=== PATIENT | male | born 1960 | race Caucasian/White ===

== ENCOUNTER → 2016-09-16 | Outpatient (CLI) | payer MEDICARE ==
[2015-06-22 08:14] VITALS: BP 164/64
[~2016-09-16] MED LIST: AMITRIPTYLINE H25 M2 PO; CYMBALTA; DILAUDID4 M1 PO; FLEXERIL 1010 MG/TAB PO; GLUCOPHAGE1000 MG PO; KLONOPIN0.5 M1 PO; LEVEMIR100 U/M1; LYRICA PO; LYRICA20 MG/ML; VICTOZA6 MG/ML SQ
== END ==
LOC: RAD 15:07
DX: M54.5 Low back pain (principal); M79.651 Pain in right thigh; M51.36 Other intervertebral disc degeneration, lumbar region

== ENCOUNTER → 2016-11-04 | Outpatient (CLI) | payer MEDICARE ==
[2015-06-22 08:14] VITALS: BP 164/64
== END ==
LOC: LAB 13:58
DX: E11.9 Type 2 diabetes mellitus without complications (principal); I10 Essential (primary) hypertension; J44.9 Chronic obstructive pulmonary disease, unspecified; M54.16 Radiculopathy, lumbar region

== ENCOUNTER → 2017-02-24 | Outpatient (CLI) | payer MEDICARE ==
[2015-06-22 08:14] VITALS: BP 164/64
== END ==
LOC: LAB 14:09
DX: I10 Essential (primary) hypertension (principal); E11.40 Type 2 diabetes mellitus with diabetic neuropathy, unspecified; E11.8 Type 2 diabetes mellitus with unspecified complications

== ENCOUNTER → 2017-03-16 | Outpatient (CLI) | payer MEDICARE ==
[~2017-03-16] VITALS: Ht 188 cm; Wt 188.6 kg
[~2017-03-16] MED LIST changes: +ACTOS 15MG TAB15 MG PO; +COMBIVENT RESPI1 SPR IH; +LISINOPRIL40 MG PO; +NORTRIPTYLINE H10 M1
[2017-03-16 08:44] LABS: PROTHROMBIN TIME 9.9 SECONDS (9.0-12.0)
[2017-03-16 08:48] LABS: BUN/CREATININE RATIO 30.3 (6.0-26.0); CALCIUM 9.8 mg/dL (8.4-10.2); POTASSIUM 4.6 mmol/L (3.6-5.0); TOTAL BILIRUBIN 0.8 mg/dL (0.2-1.3); TOTAL PROTEIN 7.5 g/dL (6.3-8.2)
[2017-03-16 08:51] LABS: EOS # 0.3 (0.04-0.40); EOS % 3.1 % (0.0-4.0); HEMATOCRIT 42.6 % (42.0-52.0); HEMOGLOBIN 14.5 g/dL (13.5-18.0); LYMPH# 2.2 (1.50-4.00); MEAN CELL VOLUME 91 fl (78-100); MEAN CORPUSCULAR HEMOGLOBIN 31 pg (27-31); MEAN CORPUSCULAR HGB CONC 34 g/dL (33-37); MEAN PLATELET VOLUME 10.7 fl (7.4-10.4); MONO # 0.7 (0.20-0.80); NEU # 4.8 (1.40-6.50); PLATELET COUNT 198 K/mm3 (130-400); RED BLOOD COUNT 4.68 M/mm3 (4.20-5.60); RED CELL DISTRIBUTION WIDTH 13.1 % (11.5-14.5)
[2017-03-16 09:03] LABS: URINE APPEARANCE CLEAR; URINE BILIRUBIN NEGATIVE (NEGATIVE); URINE BLOOD NEGATIVE (NEGATIVE); URINE COLOR YELLOW; URINE GLUCOSE NEGATIVE (NEGATIVE); URINE KETONE NEGATIVE (NEGATIVE); URINE LEUKOCYTE ESTERASE NEGATIVE (NEGATIVE); URINE NITRATE NEGATIVE (NEGATIVE); URINE PROTEIN(semi-quant) NEGATIVE (NEGATIVE); URINE UROBILINOGEN NORMAL (NORMAL); URINE WBC 0-1 /hpf (0-3)
[2017-03-16 09:12] VITALS: BP 132/72
== END ==
LOC: AMSURD 08:16
DX: E11.9 Type 2 diabetes mellitus without complications (principal); I10 Essential (primary) hypertension; I11.0 Hypertensive heart disease with heart failure

== ENCOUNTER → 2017-03-21 | Outpatient (CLI) | payer MEDICARE ==
[2017-03-16 09:12] VITALS: BP 132/72
== END ==
LOC: RAD 13:00
DX: Z01.810 Encounter for preprocedural cardiovascular examination (principal); M54.16 Radiculopathy, lumbar region

== ENCOUNTER 2017-04-15 16:54 | Inpatient (IN) | payer MEDICARE ==
[~2017-04-15] VITALS: Ht 188 cm; Wt 191.0 kg
[~2017-04-15 16:54] MED LIST changes: -LEVEMIR100 U/M1; +LEVEMIR100 U/M1 SQ
[2017-04-15 18:14] VITALS: BP 163/84
[2017-04-15 18:26] VITALS: BP 163/84
[2017-04-16 06:28] VITALS: BP 176/87
[2017-04-16 07:49] LABS: ALBUMIN 3.2 g/dL (3.5-5.0); BUN/CREATININE RATIO 31.5 (6.0-26.0); CALCIUM 8.9 mg/dL (8.4-10.2); POTASSIUM 4.5 mmol/L (3.6-5.0); TOTAL BILIRUBIN 0.8 mg/dL (0.2-1.3); TOTAL PROTEIN 6.5 g/dL (6.3-8.2)
[2017-04-16 07:54] LABS: EOS # 0.4 (0.04-0.40); HEMATOCRIT 30.9 % (42.0-52.0); HEMOGLOBIN 10.1 g/dL (13.5-18.0); LYMPH# 1.3 (1.50-4.00); MEAN CELL VOLUME 93 fl (78-100); MEAN CORPUSCULAR HEMOGLOBIN 30 pg (27-31); MEAN CORPUSCULAR HGB CONC 33 g/dL (33-37); MEAN PLATELET VOLUME 10.9 fl (7.4-10.4); MONO # 0.8 (0.20-0.80); NEU # 4.2 (1.40-6.50); PLATELET COUNT 166 K/mm3 (130-400); RED BLOOD COUNT 3.32 M/mm3 (4.20-5.60); RED CELL DISTRIBUTION WIDTH 13.4 % (11.5-14.5); WHITE BLOOD COUNT 6.7 K/mm3 (4.8-10.8)
[2017-04-16 08:10] LABS: EOS % 5.2 % (0.0-4.0)
[2017-04-16 17:58] VITALS: BP 166/71
[2017-04-16 18:08] VITALS: BP 166/71
[2017-04-16 18:30] VITALS: BP 166/74
[2017-04-17 05:16] VITALS: BP 152/65
[2017-04-17 17:43] VITALS: BP 171/76
[2017-04-18 06:10] VITALS: BP 148/74
[2017-04-18 07:05] LABS: HEMATOCRIT 33.4 % (42.0-52.0); MEAN CELL VOLUME 93 fl (78-100); MEAN CORPUSCULAR HEMOGLOBIN 31 pg (27-31); MEAN CORPUSCULAR HGB CONC 33 g/dL (33-37); MEAN PLATELET VOLUME 10.3 fl (7.4-10.4); PLATELET COUNT 206 K/mm3 (130-400); RED BLOOD COUNT 3.61 M/mm3 (4.20-5.60); RED CELL DISTRIBUTION WIDTH 13.5 % (11.5-14.5); WHITE BLOOD COUNT 6.9 K/mm3 (4.8-10.8)
[2017-04-18 07:57] LABS: BAND 1 % (0-10); LYMPHOCYTE 30 % (20-51); MONOCYTE 7 % (3-10); NEUTROPHILS 58 % (42-75); NUCLEATED RED BLOOD CELL 1 (0-6)
[2017-04-18 08:01] LABS: ERYTHROCYTE SEDIMENTATION RATE 78 mm/hr (0-20)
[2017-04-18 19:01] VITALS: BP 170/62
[2017-04-19 06:33] VITALS: BP 175/86
[2017-04-19 18:05] VITALS: BP 185/93
[2017-04-20 06:30] VITALS: BP 147/86
[2017-04-20 19:00] VITALS: BP 149/70
[2017-04-21 06:55] VITALS: BP 132/64
[2017-04-21 18:20] VITALS: BP 133/54
[2017-04-22 06:38] VITALS: BP 167/97
[2017-04-22 15:13] LABS: BASO # 0.1 (0.02-0.10); EOS # 0.4 (0.04-0.40); EOS % 4.5 % (0.0-4.0); HEMATOCRIT 39.9 % (42.0-52.0); LYMPH# 2.2 (1.50-4.00); MEAN CELL VOLUME 93 fl (78-100); MEAN CORPUSCULAR HEMOGLOBIN 30 pg (27-31); MEAN CORPUSCULAR HGB CONC 33 g/dL (33-37); MONO # 0.9 (0.20-0.80); NEU # 5.2 (1.40-6.50); PLATELET COUNT 308 K/mm3 (130-400); RED CELL DISTRIBUTION WIDTH 13.6 % (11.5-14.5); WHITE BLOOD COUNT 9.1 K/mm3 (4.8-10.8)
[2017-04-22 18:50] VITALS: BP 148/77
[2017-04-23 06:22] VITALS: BP 135/62
[2017-04-23 18:34] VITALS: BP 171/83
[2017-04-24 05:58] VITALS: BP 128/68
[2017-04-24 06:23] VITALS: BP 128/68
[2017-04-24 18:40] VITALS: BP 127/80
[2017-04-25 06:24] VITALS: BP 169/89
[2017-04-25 18:02] VITALS: BP 153/87
[2017-04-26 06:24] VITALS: BP 151/77
[2017-04-26 08:14] LABS: BASO # 0.1 (0.02-0.10); EOS # 0.2 (0.04-0.40); EOS % 1.4 % (0.0-4.0); HEMATOCRIT 41.9 % (42.0-52.0); HEMOGLOBIN 13.6 g/dL (13.5-18.0); LYMPH# 2.2 (1.50-4.00); MEAN CELL VOLUME 92 fl (78-100); MEAN CORPUSCULAR HEMOGLOBIN 30 pg (27-31); MEAN CORPUSCULAR HGB CONC 33 g/dL (33-37); MEAN PLATELET VOLUME 9.9 fl (7.4-10.4); MONO # 1.4 (0.20-0.80); NEU # 8.8 (1.40-6.50); PLATELET COUNT 339 K/mm3 (130-400); RED BLOOD COUNT 4.54 M/mm3 (4.20-5.60); RED CELL DISTRIBUTION WIDTH 13.3 % (11.5-14.5); WHITE BLOOD COUNT 12.7 K/mm3 (4.8-10.8)
[2017-04-26] MEDS ORDERED: ROBAXIN 75750 MG/TA1 PO (09:07)
[2017-04-26] MEDS ORDERED: NICOTINE21 MG/24 H TD (09:08)
[2017-04-26] MEDS ORDERED: LYRICA 150MG C150 MG PO (09:11)
[2017-04-26 09:16] LABS: ERYTHROCYTE SEDIMENTATION RATE 44 mm/hr (0-20)
== END 2017-04-26 13:10 | disposition home health service (06) | DRG 920 ==
LOC: MED/SURG 16:54
PROVIDERS: Family Medicine; ADMIT Physician Assistant
DX: M96.842 Postprocedural seroma of a musculoskeletal structure following a musculoskeletal system procedure (principal); Z68.43 Body mass index [BMI] 50.0-59.9, adult; R53.81 Other malaise; E66.01 Morbid (severe) obesity due to excess calories; J44.9 Chronic obstructive pulmonary disease, unspecified; I10 Essential (primary) hypertension; E11.40 Type 2 diabetes mellitus with diabetic neuropathy, unspecified; G47.00 Insomnia, unspecified; Z79.4 Long term (current) use of insulin; Z87.891 Personal history of nicotine dependence; Z79.84 Long term (current) use of oral hypoglycemic drugs
CPT/HCPCS: J1644; J1815

== ENCOUNTER 2017-05-17 14:53 | Emergency (ER) | payer MEDICARE ==
[~2017-05-17] VITALS: Ht 188 cm; Wt 187.3 kg
[~2017-05-17 14:53] MED LIST changes: +LYRICA 150MG C150 MG PO; +NICOTINE21 MG/24 H TD; +ROBAXIN 75750 MG/TA1 PO
[2017-05-17 15:39] LABS: EOS # 0.3 (0.04-0.40); EOS % 2.2 % (0.0-4.0); HEMATOCRIT 43.1 % (42.0-52.0); HEMOGLOBIN 13.6 g/dL (13.5-18.0); LYMPH# 1.9 (1.50-4.00); MEAN CELL VOLUME 90 fl (78-100); MEAN CORPUSCULAR HEMOGLOBIN 28 pg (27-31); MEAN CORPUSCULAR HGB CONC 32 g/dL (33-37); MEAN PLATELET VOLUME 10.4 fl (7.4-10.4); MONO # 0.8 (0.20-0.80); PLATELET COUNT 351 K/mm3 (130-400); RED CELL DISTRIBUTION WIDTH 13.2 % (11.5-14.5); WHITE BLOOD COUNT 13.7 K/mm3 (4.8-10.8)
[2017-05-17 15:48] LABS: NEU # 10.7 (1.40-6.50)
[2017-05-17 16:03] LABS: ALBUMIN 4.1 g/dL (3.5-5.0); BUN/CREATININE RATIO 26.2 (6.0-26.0); CALCIUM 9.7 mg/dL (8.4-10.2); POTASSIUM 4.9 mmol/L (3.6-5.0); TOTAL BILIRUBIN 0.6 mg/dL (0.2-1.3); TOTAL PROTEIN 8.1 g/dL (6.3-8.2)
[2017-05-17 19:03] VITALS: BP 151/85
== END 2017-05-17 18:45 | disposition short-term general hospital (02) ==
LOC: ED 14:53
PROVIDERS: Physician Assistant
DX: A41.9 Sepsis, unspecified organism (principal); T81.4XXA Infection following a procedure, initial encounter; L02.212 Cutaneous abscess of back [any part, except buttock and flank]; T81.31XA Disruption of external operation (surgical) wound, not elsewhere classified, initial encounter; E11.9 Type 2 diabetes mellitus without complications; Z79.4 Long term (current) use of insulin; I10 Essential (primary) hypertension; J44.9 Chronic obstructive pulmonary disease, unspecified; W18.30XA Fall on same level, unspecified, initial encounter; Y92.003 Bedroom of unspecified non-institutional (private) residence as the place of occurrence of the external cause; Z87.891 Personal history of nicotine dependence
CPT/HCPCS: J2270; J2543; J3370; J7030; J7050

== ENCOUNTER → 2017-05-30 | Outpatient (CLI) | payer MEDICARE ==
[2017-05-17 19:03] VITALS: BP 151/85
[2017-05-30 15:41] LABS: ALBUMIN 3.4 g/dL (3.5-5.0); CALCIUM 9.1 mg/dL (8.4-10.2); POTASSIUM 4.7 mmol/L (3.6-5.0); TOTAL BILIRUBIN 0.6 mg/dL (0.2-1.3); TOTAL PROTEIN 6.8 g/dL (6.3-8.2)
[2017-05-30 15:42] LABS: BASO # 0.1 (0.02-0.10); EOS # 0.5 (0.04-0.40); HEMATOCRIT 35.8 % (42.0-52.0); HEMOGLOBIN 11.3 g/dL (13.5-18.0); LYMPH# 1.8 (1.50-4.00); MEAN CELL VOLUME 90 fl (78-100); MEAN CORPUSCULAR HEMOGLOBIN 29 pg (27-31); MEAN CORPUSCULAR HGB CONC 32 g/dL (33-37); MEAN PLATELET VOLUME 11.5 fl (7.4-10.4); MONO # 0.8 (0.20-0.80); NEU # 5.8 (1.40-6.50); PLATELET COUNT 317 K/mm3 (130-400); RED BLOOD COUNT 3.97 M/mm3 (4.20-5.60); RED CELL DISTRIBUTION WIDTH 13.7 % (11.5-14.5)
[2017-05-30 15:47] LABS: EOS % 5.1 % (0.0-4.0)
== END ==
LOC: LAB 13:56
DX: T81.4XXD Infection following a procedure, subsequent encounter (principal); A41.9 Sepsis, unspecified organism

== ENCOUNTER → 2017-06-06 | Outpatient (CLI) | payer MEDICARE ==
[2017-05-17 19:03] VITALS: BP 151/85
[2017-06-06 12:51] LABS: EOS # 0.2 (0.04-0.40); EOS % 2.1 % (0.0-4.0); HEMATOCRIT 38.3 % (42.0-52.0); HEMOGLOBIN 11.8 g/dL (13.5-18.0); MEAN CELL VOLUME 91 fl (78-100); MEAN CORPUSCULAR HEMOGLOBIN 28 pg (27-31); MEAN CORPUSCULAR HGB CONC 31 g/dL (33-37); MEAN PLATELET VOLUME 11.3 fl (7.4-10.4); MONO # 0.7 (0.20-0.80); NEU # 4.6 (1.40-6.50); PLATELET COUNT 315 K/mm3 (130-400); RED BLOOD COUNT 4.22 M/mm3 (4.20-5.60); RED CELL DISTRIBUTION WIDTH 14.4 % (11.5-14.5); WHITE BLOOD COUNT 7.5 K/mm3 (4.8-10.8)
[2017-06-06 13:01] LABS: ALBUMIN 3.3 g/dL (3.5-5.0); CALCIUM 9.1 mg/dL (8.4-10.2); POTASSIUM 5.1 mmol/L (3.6-5.0); TOTAL BILIRUBIN 0.4 mg/dL (0.2-1.3); TOTAL PROTEIN 6.5 g/dL (6.3-8.2)
== END ==
LOC: LAB 11:20
PROVIDERS: Internal Medicine Infectious Disease
DX: A41.9 Sepsis, unspecified organism (principal)

== ENCOUNTER → 2017-06-13 | Outpatient (CLI) | payer MEDICARE ==
[2017-05-17 19:03] VITALS: BP 151/85
[2017-06-13 16:56] LABS: EOS # 0.2 (0.04-0.40); EOS % 2.6 % (0.0-4.0); HEMATOCRIT 40.2 % (42.0-52.0); HEMOGLOBIN 12.5 g/dL (13.5-18.0); LYMPH# 1.7 (1.50-4.00); MEAN CELL VOLUME 91 fl (78-100); MEAN CORPUSCULAR HEMOGLOBIN 28 pg (27-31); MEAN CORPUSCULAR HGB CONC 31 g/dL (33-37); MONO # 0.7 (0.20-0.80); NEU # 5.8 (1.40-6.50); PLATELET COUNT 284 K/mm3 (130-400); RED BLOOD COUNT 4.41 M/mm3 (4.20-5.60); WHITE BLOOD COUNT 8.6 K/mm3 (4.8-10.8)
[2017-06-13 17:05] LABS: ALBUMIN 3.5 g/dL (3.5-5.0); BUN/CREATININE RATIO 22.1 (6.0-26.0); CALCIUM 9.2 mg/dL (8.4-10.2); POTASSIUM 4.8 mmol/L (3.6-5.0); TOTAL BILIRUBIN 0.3 mg/dL (0.2-1.3); TOTAL PROTEIN 6.8 g/dL (6.3-8.2)
== END ==
LOC: LAB 16:23
PROVIDERS: Family Medicine
DX: A41.9 Sepsis, unspecified organism (principal)

== ENCOUNTER → 2017-06-20 | Outpatient (CLI) | payer MEDICARE ==
[2017-06-20 10:06] LABS: EOS # 0.2 (0.04-0.40); EOS % 3.1 % (0.0-4.0); HEMATOCRIT 42.2 % (42.0-52.0); HEMOGLOBIN 13.1 g/dL (13.5-18.0); LYMPH# 1.5 (1.50-4.00); MEAN CELL VOLUME 90 fl (78-100); MEAN CORPUSCULAR HEMOGLOBIN 28 pg (27-31); MEAN CORPUSCULAR HGB CONC 31 g/dL (33-37); MEAN PLATELET VOLUME 10.5 fl (7.4-10.4); MONO # 0.7 (0.20-0.80); NEU # 5.1 (1.40-6.50); PLATELET COUNT 248 K/mm3 (130-400); RED BLOOD COUNT 4.71 M/mm3 (4.20-5.60); RED CELL DISTRIBUTION WIDTH 15.1 % (11.5-14.5); WHITE BLOOD COUNT 7.6 K/mm3 (4.8-10.8)
[2017-06-20 10:13] LABS: ALBUMIN 3.6 g/dL (3.5-5.0); BUN/CREATININE RATIO 32.3 (6.0-26.0); CALCIUM 9.2 mg/dL (8.4-10.2); POTASSIUM 4.9 mmol/L (3.6-5.0); TOTAL BILIRUBIN 0.4 mg/dL (0.2-1.3); TOTAL PROTEIN 6.9 g/dL (6.3-8.2)
== END ==
LOC: LAB 09:52
DX: A41.9 Sepsis, unspecified organism (principal)

== ENCOUNTER → 2017-06-27 | Outpatient (CLI) | payer MEDICARE ==
[2017-06-27 10:06] LABS: EOS # 0.2 (0.04-0.40); EOS % 3.7 % (0.0-4.0); HEMATOCRIT 43.2 % (42.0-52.0); HEMOGLOBIN 13.4 g/dL (13.5-18.0); LYMPH# 1.7 (1.50-4.00); MEAN CELL VOLUME 90 fl (78-100); MEAN CORPUSCULAR HEMOGLOBIN 28 pg (27-31); MEAN CORPUSCULAR HGB CONC 31 g/dL (33-37); MONO # 0.7 (0.20-0.80); NEU # 3.8 (1.40-6.50); PLATELET COUNT 249 K/mm3 (130-400); RED BLOOD COUNT 4.82 M/mm3 (4.20-5.60); RED CELL DISTRIBUTION WIDTH 14.6 % (11.5-14.5); WHITE BLOOD COUNT 6.5 K/mm3 (4.8-10.8)
[2017-06-27 10:32] LABS: ALBUMIN 3.4 g/dL (3.5-5.0); BUN/CREATININE RATIO 38.1 (6.0-26.0); CALCIUM 9.3 mg/dL (8.4-10.2); POTASSIUM 4.8 mmol/L (3.6-5.0); TOTAL BILIRUBIN 0.2 mg/dL (0.2-1.3); TOTAL PROTEIN 6.6 g/dL (6.3-8.2)
== END ==
LOC: LAB 09:52
PROVIDERS: Family Medicine
DX: A41.9 Sepsis, unspecified organism (principal)

== ENCOUNTER → 2017-07-07 | Outpatient (CLI) | payer MEDICARE ==
[~2017-07-07] VITALS: Ht 188 cm; Wt 191.8 kg
--- NOTE | 2017-07-07 10:40 | NUR ---
PICC care and NS and Hep lock flush administered by Linda Rajput RN.
[2017-07-07 11:20] VITALS: BP 119/67
[2017-07-07 11:54] LABS: EOS # 0.2 (0.04-0.40); EOS % 1.9 % (0.0-4.0); HEMATOCRIT 45.1 % (42.0-52.0); MEAN CELL VOLUME 88 fl (78-100); MEAN CORPUSCULAR HEMOGLOBIN 27 pg (27-31); MEAN CORPUSCULAR HGB CONC 31 g/dL (33-37); MEAN PLATELET VOLUME 10.8 fl (7.4-10.4); MONO # 0.7 (0.20-0.80); NEU # 4.8 (1.40-6.50); PLATELET COUNT 278 K/mm3 (130-400); RED BLOOD COUNT 5.13 M/mm3 (4.20-5.60); RED CELL DISTRIBUTION WIDTH 14.8 % (11.5-14.5); WHITE BLOOD COUNT 7.7 K/mm3 (4.8-10.8)
[2017-07-07 11:56] LABS: BUN/CREATININE RATIO 26.7 (6.0-26.0); CALCIUM 9.6 mg/dL (8.4-10.2); POTASSIUM 4.6 mmol/L (3.6-5.0); TOTAL BILIRUBIN 0.4 mg/dL (0.2-1.3); TOTAL PROTEIN 7.9 g/dL (6.3-8.2)
[2017-07-08 08:20] LABS: C-REACTIVE PROTEIN XXX
== END ==
LOC: AMSURD 10:41 → LAB 10:41
PROVIDERS: Family Medicine
DX: T81.4XXA Infection following a procedure, initial encounter (principal); E11.9 Type 2 diabetes mellitus without complications; I10 Essential (primary) hypertension; E66.01 Morbid (severe) obesity due to excess calories
CPT/HCPCS: J1644

== ENCOUNTER → 2017-07-11 | Outpatient (CLI) | payer MEDICARE ==
[2017-07-07 11:20] VITALS: BP 119/67
[2017-07-11 09:39] LABS: EOS # 0.2 (0.04-0.40); EOS % 2.5 % (0.0-4.0); HEMATOCRIT 43.2 % (42.0-52.0); HEMOGLOBIN 13.6 g/dL (13.5-18.0); MEAN CELL VOLUME 89 fl (78-100); MEAN CORPUSCULAR HEMOGLOBIN 28 pg (27-31); MEAN CORPUSCULAR HGB CONC 32 g/dL (33-37); MEAN PLATELET VOLUME 10.9 fl (7.4-10.4); MONO # 0.6 (0.20-0.80); NEU # 4.1 (1.40-6.50); PLATELET COUNT 265 K/mm3 (130-400); RED BLOOD COUNT 4.88 M/mm3 (4.20-5.60); WHITE BLOOD COUNT 6.9 K/mm3 (4.8-10.8)
[2017-07-11 09:49] LABS: ALBUMIN 3.5 g/dL (3.5-5.0); BUN/CREATININE RATIO 31.1 (6.0-26.0); POTASSIUM 4.5 mmol/L (3.6-5.0); TOTAL BILIRUBIN 0.3 mg/dL (0.2-1.3); TOTAL PROTEIN 6.7 g/dL (6.3-8.2)
[2017-07-11 10:11] LABS: CALCIUM 8.9 mg/dL (8.4-10.2)
== END ==
LOC: LAB 09:25
PROVIDERS: Internal Medicine Infectious Disease
DX: L02.91 Cutaneous abscess, unspecified (principal)

== ENCOUNTER → 2017-07-18 | Outpatient (CLI) | payer MEDICARE ==
[2017-07-07 11:20] VITALS: BP 119/67
[2017-07-18 10:42] LABS: EOS # 0.2 (0.04-0.40); EOS % 2.9 % (0.0-4.0); HEMATOCRIT 45.4 % (42.0-52.0); HEMOGLOBIN 14.1 g/dL (13.5-18.0); LYMPH# 1.8 (1.50-4.00); MEAN CELL VOLUME 88 fl (78-100); MEAN CORPUSCULAR HEMOGLOBIN 27 pg (27-31); MEAN CORPUSCULAR HGB CONC 31 g/dL (33-37); MEAN PLATELET VOLUME 10.9 fl (7.4-10.4); MONO # 0.6 (0.20-0.80); NEU # 4.1 (1.40-6.50); PLATELET COUNT 265 K/mm3 (130-400); RED BLOOD COUNT 5.15 M/mm3 (4.20-5.60); RED CELL DISTRIBUTION WIDTH 15.3 % (11.5-14.5); WHITE BLOOD COUNT 6.8 K/mm3 (4.8-10.8)
[2017-07-18 11:03] LABS: ALBUMIN 3.7 g/dL (3.5-5.0); BUN/CREATININE RATIO 30.8 (6.0-26.0); CALCIUM 9.2 mg/dL (8.4-10.2); POTASSIUM 4.4 mmol/L (3.6-5.0); TOTAL BILIRUBIN 0.4 mg/dL (0.2-1.3); TOTAL PROTEIN 6.8 g/dL (6.3-8.2)
== END ==
LOC: LAB 10:15
PROVIDERS: Internal Medicine Infectious Disease
DX: L02.91 Cutaneous abscess, unspecified (principal)

== ENCOUNTER → 2017-07-27 | Outpatient (CLI) | payer MEDICARE ==
[2017-07-07 11:20] VITALS: BP 119/67
[2017-07-27 12:10] LABS: EOS # 0.1 (0.04-0.40); EOS % 1.5 % (0.0-4.0); HEMOGLOBIN 14.6 g/dL (13.5-18.0); LYMPH# 1.6 (1.50-4.00); MEAN CELL VOLUME 88 fl (78-100); MEAN CORPUSCULAR HEMOGLOBIN 28 pg (27-31); MEAN CORPUSCULAR HGB CONC 32 g/dL (33-37); MEAN PLATELET VOLUME 11.8 fl (7.4-10.4); MONO # 0.6 (0.20-0.80); PLATELET COUNT 230 K/mm3 (130-400); RED BLOOD COUNT 5.25 M/mm3 (4.20-5.60); WHITE BLOOD COUNT 7.4 K/mm3 (4.8-10.8)
[2017-07-27 12:20] LABS: ALBUMIN 3.7 g/dL (3.5-5.0); BUN/CREATININE RATIO 29.5 (6.0-26.0); CALCIUM 9.4 mg/dL (8.4-10.2); POTASSIUM 4.9 mmol/L (3.6-5.0); TOTAL BILIRUBIN 0.4 mg/dL (0.2-1.3)
== END ==
LOC: LAB 11:28
PROVIDERS: Internal Medicine Infectious Disease
DX: L02.91 Cutaneous abscess, unspecified (principal)

== ENCOUNTER → 2017-08-01 | Outpatient (CLI) | payer MEDICARE ==
[2017-07-07 11:20] VITALS: BP 119/67
[2017-08-01 12:11] LABS: EOS # 0.1 (0.04-0.40); EOS % 2.4 % (0.0-4.0); HEMATOCRIT 46.1 % (42.0-52.0); HEMOGLOBIN 14.6 g/dL (13.5-18.0); LYMPH# 1.7 (1.50-4.00); MEAN CELL VOLUME 88 fl (78-100); MEAN CORPUSCULAR HEMOGLOBIN 28 pg (27-31); MEAN CORPUSCULAR HGB CONC 32 g/dL (33-37); MEAN PLATELET VOLUME 11.4 fl (7.4-10.4); MONO # 0.5 (0.20-0.80); NEU # 3.5 (1.40-6.50); PLATELET COUNT 244 K/mm3 (130-400); RED BLOOD COUNT 5.27 M/mm3 (4.20-5.60); WHITE BLOOD COUNT 5.9 K/mm3 (4.8-10.8)
[2017-08-01 13:31] LABS: ALBUMIN 3.7 g/dL (3.5-5.0); BUN/CREATININE RATIO 31.1 (6.0-26.0); CALCIUM 9.3 mg/dL (8.4-10.2); POTASSIUM 5.1 mmol/L (3.6-5.0); TOTAL BILIRUBIN 0.4 mg/dL (0.2-1.3)
== END ==
LOC: LAB 12:01
PROVIDERS: Internal Medicine Infectious Disease
DX: A41.9 Sepsis, unspecified organism (principal)

== ENCOUNTER → 2017-08-08 | Outpatient (CLI) | payer MEDICARE ==
[2017-07-07 11:20] VITALS: BP 119/67
[2017-08-08 11:44] LABS: ALBUMIN 3.7 g/dL (3.5-5.0); BUN/CREATININE RATIO 41.4 (6.0-26.0); POTASSIUM 4.9 mmol/L (3.6-5.0); TOTAL BILIRUBIN 0.3 mg/dL (0.2-1.3); TOTAL PROTEIN 6.8 g/dL (6.3-8.2)
[2017-08-08 11:52] LABS: EOS # 0.2 (0.04-0.40); EOS % 2.9 % (0.0-4.0); HEMATOCRIT 44.1 % (42.0-52.0); HEMOGLOBIN 14.1 g/dL (13.5-18.0); LYMPH# 1.3 (1.50-4.00); MEAN CELL VOLUME 88 fl (78-100); MEAN CORPUSCULAR HEMOGLOBIN 28 pg (27-31); MEAN CORPUSCULAR HGB CONC 32 g/dL (33-37); MEAN PLATELET VOLUME 11.7 fl (7.4-10.4); MONO # 0.5 (0.20-0.80); NEU # 3.5 (1.40-6.50); PLATELET COUNT 230 K/mm3 (130-400); RED BLOOD COUNT 5.02 M/mm3 (4.20-5.60); RED CELL DISTRIBUTION WIDTH 15.2 % (11.5-14.5); WHITE BLOOD COUNT 5.5 K/mm3 (4.8-10.8)
== END ==
LOC: LAB 11:19
PROVIDERS: Internal Medicine Infectious Disease
DX: L02.91 Cutaneous abscess, unspecified (principal); E66.01 Morbid (severe) obesity due to excess calories; E11.9 Type 2 diabetes mellitus without complications

== ENCOUNTER → 2017-08-15 | Outpatient (CLI) | payer MEDICARE ==
[2017-07-07 11:20] VITALS: BP 119/67
[2017-08-15 12:12] LABS: EOS # 0.1 (0.04-0.40); EOS % 2.3 % (0.0-4.0); HEMATOCRIT 42.5 % (42.0-52.0); HEMOGLOBIN 13.9 g/dL (13.5-18.0); LYMPH# 1.4 (1.50-4.00); MEAN CELL VOLUME 86 fl (78-100); MEAN CORPUSCULAR HEMOGLOBIN 28 pg (27-31); MEAN CORPUSCULAR HGB CONC 33 g/dL (33-37); MEAN PLATELET VOLUME 10.9 fl (7.4-10.4); MONO # 0.7 (0.20-0.80); NEU # 3.8 (1.40-6.50); PLATELET COUNT 214 K/mm3 (130-400); RED BLOOD COUNT 4.92 M/mm3 (4.20-5.60); RED CELL DISTRIBUTION WIDTH 15.1 % (11.5-14.5); WHITE BLOOD COUNT 6.2 K/mm3 (4.8-10.8)
[2017-08-15 12:54] LABS: ALBUMIN 3.6 g/dL (3.5-5.0); BUN/CREATININE RATIO 21.5 (6.0-26.0); CALCIUM 9.2 mg/dL (8.4-10.2); POTASSIUM 4.9 mmol/L (3.6-5.0); TOTAL BILIRUBIN 0.4 mg/dL (0.2-1.3); TOTAL PROTEIN 6.8 g/dL (6.3-8.2)
== END ==
LOC: LAB 12:00
PROVIDERS: Internal Medicine Infectious Disease
DX: L02.91 Cutaneous abscess, unspecified (principal); E66.01 Morbid (severe) obesity due to excess calories; E11.9 Type 2 diabetes mellitus without complications; A41.9 Sepsis, unspecified organism

== ENCOUNTER → 2017-08-22 | Outpatient (CLI) | payer MEDICARE ==
[2017-07-07 11:20] VITALS: BP 119/67
[2017-08-22 12:30] LABS: EOS # 0.2 (0.04-0.40); HEMATOCRIT 39.8 % (42.0-52.0); HEMOGLOBIN 12.8 g/dL (13.5-18.0); LYMPH# 1.7 (1.50-4.00); MEAN CELL VOLUME 87 fl (78-100); MEAN CORPUSCULAR HEMOGLOBIN 28 pg (27-31); MEAN CORPUSCULAR HGB CONC 32 g/dL (33-37); MEAN PLATELET VOLUME 10.8 fl (7.4-10.4); MONO # 0.6 (0.20-0.80); NEU # 3.8 (1.40-6.50); PLATELET COUNT 207 K/mm3 (130-400); RED BLOOD COUNT 4.56 M/mm3 (4.20-5.60); WHITE BLOOD COUNT 6.4 K/mm3 (4.8-10.8)
[2017-08-22 12:41] LABS: ALBUMIN 3.6 g/dL (3.5-5.0); BUN/CREATININE RATIO 30.6 (6.0-26.0); CALCIUM 9.2 mg/dL (8.4-10.2); POTASSIUM 4.7 mmol/L (3.6-5.0); TOTAL BILIRUBIN 0.3 mg/dL (0.2-1.3); TOTAL PROTEIN 6.9 g/dL (6.3-8.2)
== END ==
LOC: LAB 12:11
PROVIDERS: Internal Medicine Infectious Disease
DX: A41.9 Sepsis, unspecified organism (principal)

== ENCOUNTER → 2017-08-29 | Outpatient (CLI) | payer MEDICARE ==
[2017-07-07 11:20] VITALS: BP 119/67
[2017-08-29 12:20] LABS: EOS # 0.1 (0.04-0.40); EOS % 2.5 % (0.0-4.0); HEMOGLOBIN 13.1 g/dL (13.5-18.0); LYMPH# 1.5 (1.50-4.00); MEAN CELL VOLUME 89 fl (78-100); MEAN CORPUSCULAR HEMOGLOBIN 28 pg (27-31); MEAN CORPUSCULAR HGB CONC 32 g/dL (33-37); MEAN PLATELET VOLUME 11.3 fl (7.4-10.4); MONO # 0.6 (0.20-0.80); NEU # 3.4 (1.40-6.50); PLATELET COUNT 230 K/mm3 (130-400); RED BLOOD COUNT 4.61 M/mm3 (4.20-5.60); RED CELL DISTRIBUTION WIDTH 15.3 % (11.5-14.5); WHITE BLOOD COUNT 5.7 K/mm3 (4.8-10.8)
[2017-08-29 16:49] LABS: ALBUMIN 3.6 g/dL (3.5-5.0); CALCIUM 9.3 mg/dL (8.4-10.2); POTASSIUM 5.2 mmol/L (3.6-5.0); TOTAL BILIRUBIN 0.2 mg/dL (0.2-1.3)
== END ==
LOC: LAB 11:22
PROVIDERS: Internal Medicine Infectious Disease
DX: L02.91 Cutaneous abscess, unspecified (principal); E66.01 Morbid (severe) obesity due to excess calories; I10 Essential (primary) hypertension; F51.02 Adjustment insomnia; F32.9 Major depressive disorder, single episode, unspecified; E11.40 Type 2 diabetes mellitus with diabetic neuropathy, unspecified

== ENCOUNTER → 2017-09-05 | Outpatient (CLI) | payer MEDICARE ==
[2017-07-07 11:20] VITALS: BP 119/67
[2017-09-05 10:51] LABS: EOS # 0.2 (0.04-0.40); EOS % 2.4 % (0.0-4.0); HEMOGLOBIN 13.8 g/dL (13.5-18.0); LYMPH# 1.7 (1.50-4.00); MEAN CELL VOLUME 88 fl (78-100); MEAN CORPUSCULAR HEMOGLOBIN 28 pg (27-31); MEAN CORPUSCULAR HGB CONC 32 g/dL (33-37); MEAN PLATELET VOLUME 10.7 fl (7.4-10.4); MONO # 0.6 (0.20-0.80); NEU # 3.7 (1.40-6.50); PLATELET COUNT 221 K/mm3 (130-400); RED BLOOD COUNT 4.89 M/mm3 (4.20-5.60); RED CELL DISTRIBUTION WIDTH 15.5 % (11.5-14.5); WHITE BLOOD COUNT 6.3 K/mm3 (4.8-10.8)
[2017-09-05 11:27] LABS: ALBUMIN 3.8 g/dL (3.5-5.0); BUN/CREATININE RATIO 33.3 (6.0-26.0); CALCIUM 9.2 mg/dL (8.4-10.2); POTASSIUM 4.5 mmol/L (3.6-5.0); TOTAL BILIRUBIN 0.5 mg/dL (0.2-1.3); TOTAL PROTEIN 7.1 g/dL (6.3-8.2)
== END ==
LOC: LAB 10:31
PROVIDERS: Internal Medicine Infectious Disease
DX: L02.91 Cutaneous abscess, unspecified (principal); E66.01 Morbid (severe) obesity due to excess calories; E11.9 Type 2 diabetes mellitus without complications; Z45.2 Encounter for adjustment and management of vascular access device

== ENCOUNTER → 2017-09-12 | Outpatient (CLI) | payer MEDICARE ==
[2017-07-07 11:20] VITALS: BP 119/67
[2017-09-12 10:56] LABS: EOS # 0.1 (0.04-0.40); EOS % 2.3 % (0.0-4.0); HEMATOCRIT 41.9 % (42.0-52.0); HEMOGLOBIN 13.4 g/dL (13.5-18.0); LYMPH# 1.4 (1.50-4.00); MEAN CELL VOLUME 88 fl (78-100); MEAN CORPUSCULAR HEMOGLOBIN 28 pg (27-31); MEAN CORPUSCULAR HGB CONC 32 g/dL (33-37); MEAN PLATELET VOLUME 11.4 fl (7.4-10.4); MONO # 0.7 (0.20-0.80); NEU # 3.8 (1.40-6.50); PLATELET COUNT 181 K/mm3 (130-400); RED BLOOD COUNT 4.75 M/mm3 (4.20-5.60); RED CELL DISTRIBUTION WIDTH 15.5 % (11.5-14.5)
[2017-09-12 11:20] LABS: ALBUMIN 3.6 g/dL (3.5-5.0); BUN/CREATININE RATIO 30.2 (6.0-26.0); POTASSIUM 4.8 mmol/L (3.6-5.0); TOTAL BILIRUBIN 0.4 mg/dL (0.2-1.3); TOTAL PROTEIN 6.8 g/dL (6.3-8.2)
== END ==
LOC: LAB 09:52
PROVIDERS: Family Medicine
DX: L02.91 Cutaneous abscess, unspecified (principal); E66.01 Morbid (severe) obesity due to excess calories; E11.9 Type 2 diabetes mellitus without complications

== ENCOUNTER → 2017-09-19 | Outpatient (CLI) | payer MEDICARE ==
[2017-07-07 11:20] VITALS: BP 119/67
[2017-09-19 10:25] LABS: EOS # 0.2 (0.04-0.40); EOS % 2.5 % (0.0-4.0); HEMATOCRIT 44.1 % (42.0-52.0); HEMOGLOBIN 14.3 g/dL (13.5-18.0); MEAN CELL VOLUME 87 fl (78-100); MEAN CORPUSCULAR HEMOGLOBIN 28 pg (27-31); MEAN CORPUSCULAR HGB CONC 32 g/dL (33-37); MEAN PLATELET VOLUME 10.9 fl (7.4-10.4); MONO # 0.5 (0.20-0.80); NEU # 4.1 (1.40-6.50); PLATELET COUNT 202 K/mm3 (130-400); RED BLOOD COUNT 5.07 M/mm3 (4.20-5.60); RED CELL DISTRIBUTION WIDTH 15.1 % (11.5-14.5); WHITE BLOOD COUNT 6.9 K/mm3 (4.8-10.8)
[2017-09-19 10:54] LABS: ALBUMIN 3.8 g/dL (3.5-5.0); BUN/CREATININE RATIO 29.9 (6.0-26.0); CALCIUM 9.3 mg/dL (8.4-10.2); POTASSIUM 4.4 mmol/L (3.6-5.0); TOTAL BILIRUBIN 0.7 mg/dL (0.2-1.3); TOTAL PROTEIN 7.3 g/dL (6.3-8.2)
== END ==
LOC: LAB 09:43
PROVIDERS: Internal Medicine Infectious Disease
DX: L02.91 Cutaneous abscess, unspecified (principal); E66.01 Morbid (severe) obesity due to excess calories; E11.9 Type 2 diabetes mellitus without complications

== ENCOUNTER → 2017-09-26 | Outpatient (CLI) | payer MEDICARE ==
[2017-07-07 11:20] VITALS: BP 119/67
[2017-09-26 11:09] LABS: EOS # 0.2 (0.04-0.40); HEMATOCRIT 42.9 % (42.0-52.0); HEMOGLOBIN 14.1 g/dL (13.5-18.0); LYMPH# 1.4 (1.50-4.00); MEAN CELL VOLUME 88 fl (78-100); MEAN CORPUSCULAR HEMOGLOBIN 29 pg (27-31); MEAN CORPUSCULAR HGB CONC 33 g/dL (33-37); MEAN PLATELET VOLUME 10.9 fl (7.4-10.4); MONO # 0.9 (0.20-0.80); NEU # 5.6 (1.40-6.50); PLATELET COUNT 230 K/mm3 (130-400); RED BLOOD COUNT 4.89 M/mm3 (4.20-5.60); RED CELL DISTRIBUTION WIDTH 15.2 % (11.5-14.5); WHITE BLOOD COUNT 8.1 K/mm3 (4.8-10.8)
[2017-09-26 11:17] LABS: ALBUMIN 4.1 g/dL (3.5-5.0); BUN/CREATININE RATIO 30.7 (6.0-26.0); CALCIUM 9.6 mg/dL (8.4-10.2); POTASSIUM 4.9 mmol/L (3.6-5.0); TOTAL BILIRUBIN 0.7 mg/dL (0.2-1.3); TOTAL PROTEIN 7.7 g/dL (6.3-8.2)
== END ==
LOC: LAB 10:12
PROVIDERS: Family Medicine
DX: L02.91 Cutaneous abscess, unspecified (principal); E11.9 Type 2 diabetes mellitus without complications; E66.01 Morbid (severe) obesity due to excess calories; Z45.2 Encounter for adjustment and management of vascular access device

== ENCOUNTER → 2017-10-03 | Outpatient (CLI) | payer MEDICARE ==
[2017-07-07 11:20] VITALS: BP 119/67
[2017-10-03 10:17] LABS: HEMOGLOBIN 14.1 g/dL (13.5-18.0); MEAN PLATELET VOLUME 10.9 fl (7.4-10.4); RED BLOOD COUNT 4.95 M/mm3 (4.20-5.60); RED CELL DISTRIBUTION WIDTH 15.5 % (11.5-14.5); WHITE BLOOD COUNT 6.3 K/mm3 (4.8-10.8)
[2017-10-03 10:25] LABS: ALBUMIN 3.9 g/dL (3.5-5.0); BUN/CREATININE RATIO 35.1 (6.0-26.0); CALCIUM 9.6 mg/dL (8.4-10.2); POTASSIUM 5.2 mmol/L (3.6-5.0); TOTAL BILIRUBIN 0.4 mg/dL (0.2-1.3); TOTAL PROTEIN 7.4 g/dL (6.3-8.2)
[2017-10-04 02:28] LABS: C-REACTIVE PROTEIN XXX
== END ==
LOC: LAB 09:33
PROVIDERS: Internal Medicine Infectious Disease
DX: L02.91 Cutaneous abscess, unspecified (principal); E66.01 Morbid (severe) obesity due to excess calories; I10 Essential (primary) hypertension; F51.02 Adjustment insomnia; F32.9 Major depressive disorder, single episode, unspecified; E11.40 Type 2 diabetes mellitus with diabetic neuropathy, unspecified

== ENCOUNTER 2017-12-13 13:00 | Observation (INO) | payer MEDICARE ==
[~2017-12-13] VITALS: Ht 188 cm; Wt 191.3 kg
[2017-12-13] MEDS ORDERED: BETHANECHOL25 MG PO (13:37)
[2017-12-13] MEDS ORDERED: ESCITALOPRAM10 MG PO (13:37)
[2017-12-13] MEDS ORDERED: LISINOPRIL10 MG PO (13:37)
[2017-12-13] MEDS ORDERED: TIZANIDINE HYDRO4 MG PO (13:38)
[2017-12-13 15:44] LABS: EOS # 0.1 (0.04-0.40); EOS % 0.9 % (0.0-4.0); HEMATOCRIT 41.6 % (42.0-52.0); HEMOGLOBIN 13.5 g/dL (13.5-18.0); LYMPH# 1.2 (1.50-4.00); MEAN CELL VOLUME 90 fl (78-100); MEAN CORPUSCULAR HEMOGLOBIN 29 pg (27-31); MEAN CORPUSCULAR HGB CONC 33 g/dL (33-37); MEAN PLATELET VOLUME 10.3 fl (7.4-10.4); MONO # 0.6 (0.20-0.80); PLATELET COUNT 262 K/mm3 (130-400); RED BLOOD COUNT 4.65 M/mm3 (4.20-5.60)
[2017-12-13 16:00] LABS: BUN/CREATININE RATIO 20.5 (6.0-26.0); CALCIUM 9.3 mg/dL (8.4-10.2); POTASSIUM 4.2 mmol/L (3.6-5.0); TOTAL BILIRUBIN 0.7 mg/dL (0.2-1.3); TOTAL PROTEIN 7.6 g/dL (6.3-8.2)
--- NOTE | 2017-12-13 17:17 | NUR ---
Pt admitted Observation to room 205. Oriented to room and surroudnings. brings in pt home medications and they are taken to med room. Pt reports pain mid back. Request pain medication and reports he would like to just go to sleep. Eats supper independently. Has area to left flank area that appears to be healing blister that he reports was from leaving the heating pad on too long. Denies any needs at this time. Fall precautions in place. Call light in reach
[2017-12-13 17:40] VITALS: BP 144/81
[2017-12-13 17:52] VITALS: BP 144/81
[2017-12-13 18:30] LABS: ERYTHROCYTE SEDIMENTATION RATE 46 mm/hr (0-20)
--- NOTE | 2017-12-13 22:47 | NUR ---
MEPILEX APPLIED TO LEFT HIP WOUND THAT PATIENT REPORTS IS A BURN FROM LEAVING A HEATING PAD ON WHILE SLEEPING.
[2017-12-13 23:03] VITALS: BP 177/93
--- NOTE | 2017-12-13 23:03 | NUR ---
PATIENT OBSERVED TO BE LAYING IN BED, ON HIS RIGHT SIDE. PATIENT DOES NOT APPEAR TO BE IN ANY OBVIOUS DISTRESS AT THIS TIME. PATIENT IS ALERT AND ORIENTED, PLEASANT AND COOPERATIVE. PATIENT REQUESTS PAIN MEDICATION AND IT IS ADMINISTERED. PATIENT ASKS QUESTIONS ABOUT HIS WOUNDS AND WHY HE HAS AN INFECTION IN HIS BACK. EDUCATION PROVIDED. MEPILEX TO LEFT HIP IN PLACE. WOUND APPEARS MOIST AND REDDENED AROUND THE EDGES. IT APPEARS THOUGH IT WAS PREVIOUSLY A BLISTER AND THE BLISTER HAS OPENED. PATIENT CHANGES POSITION INDEPENDENTLY THROUGHOUT THE NIGHT, BUT DOES REQUIRE SOME ENCOURAGEMENT TO DO SO WHEN IN FOR CARES. PATIENT CHANGES HOB CONTROLS INDEPENDENTLY WELL. BED ALARM ARMED AT ALL TIMES. CALL LIGHT WITHIN REACH. CLOSE MONITORING AND HOURLY ROUNDING CONTINUE.
[2017-12-14 02:51] VITALS: BP 188/61
[2017-12-14 06:19] LABS: EOS # 0.1 (0.04-0.40); EOS % 1.8 % (0.0-4.0); HEMATOCRIT 39.6 % (42.0-52.0); HEMOGLOBIN 13.1 g/dL (13.5-18.0); LYMPH# 1.7 (1.50-4.00); MEAN CELL VOLUME 90 fl (78-100); MEAN CORPUSCULAR HEMOGLOBIN 30 pg (27-31); MEAN CORPUSCULAR HGB CONC 33 g/dL (33-37); MEAN PLATELET VOLUME 10.2 fl (7.4-10.4); MONO # 0.8 (0.20-0.80); NEU # 5.2 (1.40-6.50); PLATELET COUNT 257 K/mm3 (130-400); RED BLOOD COUNT 4.41 M/mm3 (4.20-5.60); RED CELL DISTRIBUTION WIDTH 14.1 % (11.5-14.5); WHITE BLOOD COUNT 7.9 K/mm3 (4.8-10.8)
[2017-12-14 06:21] VITALS: BP 128/78
--- NOTE | 2017-12-14 08:00 | NUR ---
PATIENT TO BE NPO FOR MRI AT 1200 AT [facility].
--- NOTE | 2017-12-14 09:36 | NUR ---
po dilaudid 4mg and toradol iv 30mg given as ordered, patient describes no rel pain while resting still but with any movement pain increases to a 10/10. he is encouraged to rest at this time and allow meds to work, remains npo except for sips to take med as prep for mri at 1200 at [facility]
--- NOTE | 2017-12-14 10:05 | NUR ---
woke patient to discuss current pain status, he sits on side of bed and states, "its a 5 now". patient also asks for a w/c at time of dismisssal
[2017-12-14] MEDS ORDERED: DILAUDID4 M1 PO (10:24)
[2017-12-14] MEDS ORDERED: DEMADEX 20MG20 M1 PO (10:24)
[2017-12-14] MEDS ORDERED: KETOROLAC10 MG PO (10:25)
--- NOTE | 2017-12-14 11:01 | NUR ---
HOME ISNTRUCTIONS REVIEWED WITH PATIENT AND SPOUSE, PAPER COPIES ARE GIVEN, PRESCRIPTIONS FOR DILAUDID AND TORADOL ARE ALSO GIVEN, IV LEFT IN PLACE AND SECURED WITH COBAN, DISMISSED PER W/C TO CARE OF SPOUSE
== END 2017-12-14 11:05 | disposition home or self-care (01) ==
LOC: ED 13:00 → MED/SURG 17:17
PROVIDERS: ADMIT Nurse Practitioner Primary Care
DX: E11.69 Type 2 diabetes mellitus with other specified complication (principal); M46.24 Osteomyelitis of vertebra, thoracic region; M46.44 Discitis, unspecified, thoracic region; G89.29 Other chronic pain; Z79.4 Long term (current) use of insulin; Z79.899 Other long term (current) drug therapy; J44.9 Chronic obstructive pulmonary disease, unspecified; E11.9 Type 2 diabetes mellitus without complications; I10 Essential (primary) hypertension; E66.9 Obesity, unspecified; Z68.43 Body mass index [BMI] 50.0-59.9, adult; F17.210 Nicotine dependence, cigarettes, uncomplicated
CPT/HCPCS: G0378; J1885; J2270; J2543; J3370; J7040; J7050

== ENCOUNTER → 2017-12-15 | Outpatient (CLI) | payer MEDICARE ==
[2017-12-14 23:09] VITALS: BP 138/70
[~2017-12-15] MED LIST changes: +BETHANECHOL25 MG PO; +DEMADEX 20MG20 M1 PO; +ESCITALOPRAM10 MG PO; +KETOROLAC10 MG PO; +LISINOPRIL10 MG PO; +TIZANIDINE HYDRO4 MG PO
[2017-12-15 08:17] LABS: EOS # 0.2 (0.04-0.40); EOS % 2.3 % (0.0-4.0); HEMATOCRIT 42.3 % (42.0-52.0); HEMOGLOBIN 13.6 g/dL (13.5-18.0); LYMPH# 1.3 (1.50-4.00); MEAN CELL VOLUME 90 fl (78-100); MEAN CORPUSCULAR HEMOGLOBIN 29 pg (27-31); MEAN CORPUSCULAR HGB CONC 32 g/dL (33-37); MEAN PLATELET VOLUME 9.8 fl (7.4-10.4); MONO # 0.8 (0.20-0.80); NEU # 5.2 (1.40-6.50); PLATELET COUNT 226 K/mm3 (130-400); RED BLOOD COUNT 4.68 M/mm3 (4.20-5.60); RED CELL DISTRIBUTION WIDTH 14.1 % (11.5-14.5); WHITE BLOOD COUNT 7.5 K/mm3 (4.8-10.8)
[2017-12-15 08:28] LABS: BUN/CREATININE RATIO 32.8 (6.0-26.0); CALCIUM 8.6 mg/dL (8.4-10.2); POTASSIUM 4.3 mmol/L (3.6-5.0)
[2017-12-15 09:11] LABS: ERYTHROCYTE SEDIMENTATION RATE 33 mm/hr (0-20)
== END ==
LOC: LAB 07:49
PROVIDERS: Family Medicine
DX: M46.24 Osteomyelitis of vertebra, thoracic region (principal)

== ENCOUNTER → 2017-12-19 | Outpatient (CLI) | payer MEDICARE ==
[~2017-12-19] MED LIST changes: +LYRICA200 MG PO; +MAXIPIME2 G1 IV; +NORTRIPTYLINE H10 M2 PO; +VANCO 1.51.5 GM/250 IV; +VICTOZA 3-0.6 MG/0.1 SQ; -VICTOZA6 MG/ML SQ
[2017-12-19 08:41] VITALS: BP 169/82
[2017-12-19 19:23] LABS: EOS # 0.3 (0.04-0.40); EOS % 2.9 % (0.0-4.0); HEMATOCRIT 38.4 % (42.0-52.0); HEMOGLOBIN 12.8 g/dL (13.5-18.0); LYMPH# 1.5 (1.50-4.00); MEAN CELL VOLUME 90 fl (78-100); MEAN CORPUSCULAR HEMOGLOBIN 30 pg (27-31); MEAN CORPUSCULAR HGB CONC 33 g/dL (33-37); MONO # 0.9 (0.20-0.80); NEU # 7.5 (1.40-6.50); PLATELET COUNT 218 K/mm3 (130-400); RED BLOOD COUNT 4.29 M/mm3 (4.20-5.60); WHITE BLOOD COUNT 10.3 K/mm3 (4.8-10.8)
[2017-12-19 19:39] LABS: ALBUMIN 3.8 g/dL (3.5-5.0); BUN/CREATININE RATIO 16.6 (6.0-26.0); CALCIUM 8.7 mg/dL (8.4-10.2); TOTAL BILIRUBIN 0.7 mg/dL (0.2-1.3); TOTAL PROTEIN 7.3 g/dL (6.3-8.2)
[2017-12-19 19:48] LABS: POTASSIUM 5.2 mmol/L (3.6-5.0)
== END ==
LOC: LAB 18:38
PROVIDERS: Family Medicine
DX: R33.9 Retention of urine, unspecified (principal); Z96.0 Presence of urogenital implants

== ENCOUNTER → 2017-12-19 | Outpatient (CLI) | payer MEDICARE ==
[~2017-12-19] MED LIST changes: -LYRICA200 MG PO; -MAXIPIME2 G1 IV; -NORTRIPTYLINE H10 M2 PO; -VANCO 1.51.5 GM/250 IV; -VICTOZA 3-0.6 MG/0.1 SQ; +VICTOZA6 MG/ML SQ
[2017-12-19 06:10] VITALS: BP 166/74
== END ==
LOC: LAB 06:48
DX: R33.9 Retention of urine, unspecified (principal); Z96.0 Presence of urogenital implants

== ENCOUNTER 2017-12-21 16:33 | Emergency (ER) | payer MEDICARE ==
[~2017-12-21] VITALS: Wt 199.7 kg
[~2017-12-21 16:33] MED LIST changes: -LYRICA200 MG PO; -MAXIPIME2 G1 IV; -NORTRIPTYLINE H10 M2 PO; -VANCO 1.51.5 GM/250 IV
[2017-12-21 17:16] LABS: EOS # 0.1 (0.04-0.40); EOS % 1.4 % (0.0-4.0); HEMATOCRIT 37.4 % (42.0-52.0); HEMOGLOBIN 12.1 g/dL (13.5-18.0); LYMPH# 1.6 (1.50-4.00); MEAN CELL VOLUME 90 fl (78-100); MEAN CORPUSCULAR HEMOGLOBIN 29 pg (27-31); MEAN CORPUSCULAR HGB CONC 32 g/dL (33-37); MEAN PLATELET VOLUME 10.4 fl (7.4-10.4); MONO # 0.9 (0.20-0.80); NEU # 6.3 (1.40-6.50); PLATELET COUNT 227 K/mm3 (130-400); RED BLOOD COUNT 4.16 M/mm3 (4.20-5.60); WHITE BLOOD COUNT 9.1 K/mm3 (4.8-10.8)
[2017-12-21] MEDS ORDERED: NORTRIPTYLINE H10 M2 PO (17:18)
[2017-12-21] MEDS ORDERED: LYRICA200 MG PO (17:23)
[2017-12-21 17:28] LABS: ALBUMIN 3.7 g/dL (3.5-5.0); BUN/CREATININE RATIO 13.8 (6.0-26.0); POTASSIUM 4.3 mmol/L (3.6-5.0); TOTAL BILIRUBIN 0.4 mg/dL (0.2-1.3); TOTAL PROTEIN 7.2 g/dL (6.3-8.2)
[2017-12-21] MEDS ORDERED: MAXIPIME2 G1 IV (17:31)
[2017-12-21] MEDS ORDERED: VANCO 1.51.5 GM/250 IV (17:32)
[2017-12-21 18:57] VITALS: BP 132/95
[2017-12-21 19:29] LABS: URINE APPEARANCE CLEAR; URINE BILIRUBIN NEGATIVE (NEGATIVE); URINE BLOOD NEGATIVE (NEGATIVE); URINE COLOR YELLOW; URINE GLUCOSE NEGATIVE (NEGATIVE); URINE KETONE NEGATIVE (NEGATIVE); URINE LEUKOCYTE ESTERASE NEGATIVE (NEGATIVE); URINE NITRATE NEGATIVE (NEGATIVE); URINE PROTEIN(semi-quant) TRACE mg/dL (NEGATIVE); URINE UROBILINOGEN NORMAL (NORMAL)
[2017-12-21 19:30] LABS: URINE MUCUS PRESENT (NOT PRESENT); URINE WBC 0-1 /hpf (0-3)
== END 2017-12-21 19:20 | disposition short-term general hospital (02) ==
LOC: ED 16:33
PROVIDERS: Nurse Practitioner
DX: M46.44 Discitis, unspecified, thoracic region (principal); M46.24 Osteomyelitis of vertebra, thoracic region; E11.9 Type 2 diabetes mellitus without complications; I10 Essential (primary) hypertension; Z79.4 Long term (current) use of insulin; Z79.899 Other long term (current) drug therapy; E66.01 Morbid (severe) obesity due to excess calories; F17.200 Nicotine dependence, unspecified, uncomplicated
CPT/HCPCS: J1170; J2405; J7030

== ENCOUNTER → 2017-12-21 | Outpatient (CLI) | payer MEDICARE ==
[2017-12-20 19:52] VITALS: BP 158/93
[~2017-12-21] MED LIST changes: +LYRICA200 MG PO; +MAXIPIME2 G1 IV; +NORTRIPTYLINE H10 M2 PO; +VANCO 1.51.5 GM/250 IV; +VICTOZA 3-0.6 MG/0.1 SQ; -VICTOZA6 MG/ML SQ
== END ==
LOC: RAD 06:05 → LAB 06:05
DX: M48.8X4 Other specified spondylopathies, thoracic region (principal); M46.40 Discitis, unspecified, site unspecified; Z98.1 Arthrodesis status
CPT/HCPCS: Q9967

== ENCOUNTER → 2018-01-09 | Outpatient (CLI) | payer MEDICARE ==
[2018-01-08 18:38] VITALS: BP 169/83
[~2018-01-09] MED LIST changes: +AMLODIPINE BESYL5 MG PO; +COLACE100 M1 PO; +LYRICA200 MG PO; +MAXIPIME2 G1 IV; +NORTRIPTYLINE H10 M2 PO; +VALIUM 2MG T2 MG/TAB PO; +VANCO 1.51.5 GM/250 IV
[2018-01-09 18:56] LABS: MEAN PLATELET VOLUME 10.8 fl (7.4-10.4); RED BLOOD COUNT 4.18 M/mm3 (4.20-5.60); WHITE BLOOD COUNT 6.4 K/mm3 (4.8-10.8)
[2018-01-09 19:12] LABS: ALBUMIN 3.7 g/dL (3.5-5.0); CALCIUM 8.8 mg/dL (8.4-10.2); POTASSIUM 4.5 mmol/L (3.6-5.0); TOTAL BILIRUBIN 0.4 mg/dL (0.2-1.3); TOTAL PROTEIN 6.7 g/dL (6.3-8.2)
== END ==
LOC: LAB 18:08
PROVIDERS: Family Medicine
DX: M46.44 Discitis, unspecified, thoracic region (principal)

== ENCOUNTER → 2018-01-16 | Outpatient (CLI) | payer MEDICARE ==
[2018-01-16 19:16] LABS: ALBUMIN 4.2 g/dL (3.5-5.0); CALCIUM 9.1 mg/dL (8.4-10.2); TOTAL BILIRUBIN 0.7 mg/dL (0.2-1.3); TOTAL PROTEIN 7.9 g/dL (6.3-8.2)
[2018-01-16 19:24] LABS: HEMATOCRIT 42.4 % (42.0-52.0); HEMOGLOBIN 13.5 g/dL (13.5-18.0); MEAN PLATELET VOLUME 11.4 fl (7.4-10.4); RED BLOOD COUNT 4.73 M/mm3 (4.20-5.60); RED CELL DISTRIBUTION WIDTH 14.1 % (11.5-14.5); WHITE BLOOD COUNT 8.1 K/mm3 (4.8-10.8)
== END ==
LOC: LAB 08:00
PROVIDERS: Family Medicine
DX: M46.44 Discitis, unspecified, thoracic region (principal)

== ENCOUNTER 2018-01-18 17:37 | Outpatient (RCR) | payer MEDICARE ==
[2017-12-14 20:39] VITALS: BP 128/73
[2017-12-14 23:09] VITALS: BP 138/70
[2017-12-15 08:33] VITALS: BP 133/98
[2017-12-15 10:42] VITALS: BP 145/79
[2017-12-15 18:00] VITALS: BP 161/61
[2017-12-15 20:35] VITALS: BP 161/77
[2017-12-16 05:56] VITALS: BP 147/89
[2017-12-16 09:24] VITALS: BP 179/109
[2017-12-16 18:00] VITALS: BP 176/82
[2017-12-16 20:09] VITALS: BP 189/91
[2017-12-17 07:00] VITALS: BP 161/98
[2017-12-17 18:04] VITALS: BP 168/86
[2017-12-17 20:22] VITALS: BP 135/65
[2017-12-18 05:55] VITALS: BP 146/98
[2017-12-18 08:08] VITALS: BP 162/82
[2017-12-18 20:44] VITALS: BP 147/89
[2017-12-18 23:00] VITALS: BP 155/82
[2017-12-19 06:10] VITALS: BP 166/74
[2017-12-19 08:41] VITALS: BP 169/82
[2017-12-19 18:15] VITALS: BP 192/92
[2017-12-19 20:40] VITALS: BP 189/89
[2017-12-20 06:10] VITALS: BP 188/91
[2017-12-20 08:36] VITALS: BP 134/111
[2017-12-20 18:28] VITALS: BP 174/85
[2017-12-20 19:52] VITALS: BP 158/93
[2017-12-21 06:00] VITALS: BP 131/78
[2017-12-21 08:27] VITALS: BP 169/91
[~2018-01-18] VITALS: Ht 188 cm; Wt 191.3 kg
== END 2018-01-19 11:48 | disposition home or self-care (01) ==
LOC: AMSURD 17:37
DX: M46.24 Osteomyelitis of vertebra, thoracic region (principal); R33.9 Retention of urine, unspecified; Z96.0 Presence of urogenital implants
CPT/HCPCS: J0692; J1644; J3370; J7040

== ENCOUNTER → 2018-01-23 | Outpatient (CLI) | payer MEDICARE ==
[2018-01-23 18:32] VITALS: BP 146/78
[2018-01-23 19:31] LABS: HEMATOCRIT 38.6 % (42.0-52.0); HEMOGLOBIN 12.6 g/dL (13.5-18.0); MEAN PLATELET VOLUME 11.4 fl (7.4-10.4); RED BLOOD COUNT 4.32 M/mm3 (4.20-5.60); RED CELL DISTRIBUTION WIDTH 13.5 % (11.5-14.5); WHITE BLOOD COUNT 7.1 K/mm3 (4.8-10.8)
[2018-01-23 19:42] LABS: ALBUMIN 3.8 g/dL (3.5-5.0); CALCIUM 8.6 mg/dL (8.4-10.2); POTASSIUM 4.3 mmol/L (3.6-5.0); TOTAL BILIRUBIN 0.4 mg/dL (0.2-1.3); TOTAL PROTEIN 6.8 g/dL (6.3-8.2)
== END ==
LOC: LAB 18:34
PROVIDERS: Family Medicine
DX: M46.44 Discitis, unspecified, thoracic region (principal)

== ENCOUNTER 2018-01-31 17:38 | Outpatient (RCR) | payer MEDICARE ==
[2018-01-03 18:10] VITALS: BP 172/75
[2018-01-03 18:13] VITALS: BP 172/75
[2018-01-03 18:47] VITALS: BP 183/84
[2018-01-04 17:52] VITALS: BP 139/68
[2018-01-04 18:32] VITALS: BP 160/66
[2018-01-05 18:03] VITALS: BP 157/80
[2018-01-05 19:00] VITALS: BP 158/88
[2018-01-06 18:05] VITALS: BP 187/94
[2018-01-06 18:43] VITALS: BP 159/72
[2018-01-07 14:15] VITALS: BP 145/73
[2018-01-07 15:01] VITALS: BP 151/70
[2018-01-08 18:04] VITALS: BP 176/86
[2018-01-08 18:38] VITALS: BP 169/83
[2018-01-09 17:52] VITALS: BP 172/85
[2018-01-09 19:02] VITALS: BP 136/88
[2018-01-10 18:20] VITALS: BP 159/86
[2018-01-10 19:00] VITALS: BP 179/86
[2018-01-11 17:57] VITALS: BP 143/72
[2018-01-11 18:33] VITALS: BP 136/76
[2018-01-12 18:00] VITALS: BP 161/71
[2018-01-12 19:02] VITALS: BP 134/82
[2018-01-13 17:55] VITALS: BP 166/84
[2018-01-14 17:50] VITALS: BP 170/92
[2018-01-14 18:28] VITALS: BP 181/87
[2018-01-15 18:04] VITALS: BP 170/86
[2018-01-15 18:57] VITALS: BP 168/78
[2018-01-16 17:45] VITALS: BP 130/63
[2018-01-16 18:26] VITALS: BP 129/67
[2018-01-17 17:57] VITALS: BP 144/71
[2018-01-17 18:32] VITALS: BP 159/76
[2018-01-18 17:42] VITALS: BP 143/81
[2018-01-18 18:18] VITALS: BP 144/60
[2018-01-19 18:50] VITALS: BP 200/102
[2018-01-19 19:21] VITALS: BP 148/80
[2018-01-20 17:53] VITALS: BP 152/91
[2018-01-20 18:24] VITALS: BP 153/87
[2018-01-21 17:53] VITALS: BP 135/61
[2018-01-21 18:24] VITALS: BP 111/54
[2018-01-22 18:08] VITALS: BP 159/82
[2018-01-22 18:53] VITALS: BP 159/76
[2018-01-23 17:59] VITALS: BP 142/67
[2018-01-23 18:32] VITALS: BP 146/78
[2018-01-24 17:56] VITALS: BP 158/62
[2018-01-24 18:57] VITALS: BP 146/82
[2018-01-25 17:48] VITALS: BP 111/53
[2018-01-25 18:21] VITALS: BP 140/80
[2018-01-26 17:59] VITALS: BP 171/95
[2018-01-26 18:30] VITALS: BP 159/93
[2018-01-27 18:16] VITALS: BP 163/90
[2018-01-27 18:40] VITALS: BP 184/90
[2018-01-28 17:50] VITALS: BP 140/81
[2018-01-28 18:30] VITALS: BP 141/82
[2018-01-29 18:12] VITALS: BP 119/69
[2018-01-29 18:27] VITALS: BP 139/83
[2018-01-30 17:59] VITALS: BP 152/88
[2018-01-30 18:33] VITALS: BP 152/88
[~2018-01-31] VITALS: Ht 188 cm; Wt 203.2 kg
[2018-01-31 17:45] VITALS: BP 156/81
[2018-01-31 18:30] VITALS: BP 178/96
== END 2018-01-31 19:00 | disposition home or self-care (01) ==
LOC: AMSURD 17:38
DX: M46.44 Discitis, unspecified, thoracic region (principal); Z45.2 Encounter for adjustment and management of vascular access device; Z95.9 Presence of cardiac and vascular implant and graft, unspecified
CPT/HCPCS: J1335; J1644

== ENCOUNTER → 2018-03-27 | Outpatient (CLI) | payer MEDICARE ==
[2018-03-27 09:06] LABS: ALBUMIN 4.1 g/dL (3.5-5.0); CALCIUM 9.5 mg/dL (8.4-10.2); POTASSIUM 4.3 mmol/L (3.6-5.0); TOTAL BILIRUBIN 0.7 mg/dL (0.2-1.3); TOTAL PROTEIN 7.9 g/dL (6.3-8.2)
== END ==
LOC: LAB 07:30
PROVIDERS: Family Medicine
DX: E11.9 Type 2 diabetes mellitus without complications (principal); I10 Essential (primary) hypertension

== ENCOUNTER → 2018-08-24 | Outpatient (CLI) | payer MEDICARE | LOC: LAB 14:24 | DX: E11.9 Type 2 diabetes mellitus without complications (principal) ==

== ENCOUNTER → 2018-09-22 | Outpatient (CLI) | payer MEDICARE | LOC: LAB 12:21 | DX: Z23 Encounter for immunization (principal); S80.819A Abrasion, unspecified lower leg, initial encounter; L08.9 Local infection of the skin and subcutaneous tissue, unspecified; E11.9 Type 2 diabetes mellitus without complications ==

== ENCOUNTER → 2018-11-16 | Outpatient (CLI) | payer MEDICARE | LOC: RAD 13:52 | DX: Z12.5 Encounter for screening for malignant neoplasm of prostate (principal); E11.9 Type 2 diabetes mellitus without complications; I10 Essential (primary) hypertension; R10.9 Unspecified abdominal pain ==

== ENCOUNTER → 2018-11-30 | Outpatient (CLI) | payer MEDICARE | LOC: LAB 14:29 | DX: E03.9 Hypothyroidism, unspecified (principal); E11.9 Type 2 diabetes mellitus without complications ==

== ENCOUNTER → 2019-01-15 | Outpatient (CLI) | payer MEDICARE | LOC: RAD 13:00 | DX: J32.0 Chronic maxillary sinusitis (principal); H93.3X1 Disorders of right acoustic nerve; H93.8X1 Other specified disorders of right ear ==

== ENCOUNTER → 2019-03-09 | Outpatient (CLI) | payer MEDICARE ==
[2019-03-09 09:59] LABS: ALBUMIN 3.9 g/dL (3.5-5.0); POTASSIUM 4.8 mmol/L (3.5-5.1)
[2019-03-09 10:00] LABS: CALCIUM 9.6 mg/dL (8.3-10.5)
[2019-03-09 10:01] LABS: TOTAL PROTEIN 7.6 g/dL (6.4-8.3)
[2019-03-09 10:03] LABS: TOTAL BILIRUBIN 0.6 mg/dL (0.2-1.2)
== END ==
LOC: LAB 09:29
PROVIDERS: Family Medicine
DX: Z01.812 Encounter for preprocedural laboratory examination (principal); I10 Essential (primary) hypertension; E11.9 Type 2 diabetes mellitus without complications; E66.01 Morbid (severe) obesity due to excess calories